=== PATIENT | female | born 1995 | race Caucasian/White ===

== ENCOUNTER 2017-10-22 16:03 | Emergency (ER) | payer OTHER ==
[2017-10-22 16:38] LABS: BILIRUBIN,URINE NEGATIVE (NEGATIVE); GLUCOSE, URINE (UA) NEGATIVE (NEGATIVE); KETONES,URINE (UA) NEGATIVE (NEGATIVE); LEUKOCYTE ESTERASE, URINE NEGATIVE (NEGATIVE); NITRITE,URINE NEGATIVE (NEGATIVE); OCCULT BLOOD,URINE NEGATIVE (NEGATIVE); PH,URINE 6.5 PH (5.0-7.5); PROTEIN,URINE NEGATIVE (NEGATIVE); UROBILINOGEN,URINE 0.2 (NORMAL) E.U./dL (NORMAL)
[2017-10-22 16:39] LABS: CLARITY,URINE CLEAR (CLEAR)
[2017-10-22 16:41] LABS: HCG UR QUAL NEGATIVE
--- NOTE | 2017-10-22 17:13 | ED Physician Documentation ---
PD HPI ABD PAIN - Stated complaint Stated Complaint: [place] PX - Chief complaint Chief Complaint: Abd Pain - History obtained from History obtained from: Patient - History of Present Illness Timing - onset: How many months ago (several months ago) Timing - duration: Months Timing - details: Abrupt onset, Intermittant Pain level max: 5 Pain level now: 1 Quality: Sharp (lasts 1-2 seconds at a time) Location: Suprapubic (states that it feels like a sharp string attached to her belly button.) Radiation: Other (non-radiating) Improved by: Other (nothing) Worsened by: Other (urination) Associated symptoms: Dysuria. No: Fever, Nausea, Vomiting, Hematemesis, Diarrhea, Constipation, Melena, Hematochezia, Hematuria, Chest pain, Dizzy, Vaginal dc Similar symptoms before: No diagnosis Recently seen: Clinic (had a pelvic exam last month. normal per pt.) - Additional information Additional information: No vaginal discharge Review of Systems Constitutional: denies: Fever, Chills Throat: denies: Sore throat Cardiac: denies: Chest pain / pressure Respiratory: denies: Cough GI: denies: Nausea, Vomiting, Diarrhea : denies: Dysuria, Frequency, Hesitancy, Discharge, Vaginal bleeding, Irregular menses, Missed period, Now EGA Skin: denies: Rash Neurologic: denies: Headache PD PAST MEDICAL HISTORY - Past Medical History Past Medical History: No - Past Surgical History Past Surgical History: No - Present Medications Home Medications: Ambulatory Orders Medication Instructions Recorded Confirmed No Known Home Medications [No 10/22/17 10/22/17 Known Home Medications] - Allergies Allergies/Adverse Reactions: Allergies Allergy/AdvReac Type Severity Reaction Status Date / Time No Known Drug Allergies Allergy Verified 11/11/15 06:58 - Living Situation Living Situation: reports: With family Living Arrangement: reports: At home - Social History Does the pt smoke?: No Smoking Status: Never smoker Does the pt drink ETOH?: No Does the pt have substance abuse?: No - Immunizations Immunizations are current?: Yes PD ED PE NORMAL - Vitals Vital signs reviewed: Yes - General General: Alert and oriented X 3, No acute distress - HEENT HEENT: Moist mucous membranes - Neck Neck: Supple, no meningeal sign - Cardiac Cardiac: RRR, Strong equal pulses - Respiratory Respiratory: No respiratory distress, Clear bilaterally - Abdomen Abdomen: Soft, Non tender, Non distended - Back Back: No CVA TTP, No spinal TTP - Derm Derm: Warm and dry, No rash - Extremities Extremities: No edema - Neuro Neuro: Alert and oriented X 3 - Psych Psych: Normal mood, Normal affect Results - Vitals Vitals: Vital Signs - 24 hr 10/22/17 10/22/17 16:20 19:34 Temperature 36.8 C 37.3 C Heart Rate 76 71 Respiratory 18 14 Rate Blood Pressure 114/70 116/73 O2 Saturation 100 100 Oxygen O2 Source Room air - Labs Labs: Laboratory Tests 10/22/17 10/22/17 10/22/17 16:25 16:25 17:57 WBC 9.7 RBC 4.86 Hgb 15.0 Hct 43.1 MCV 88.7 MCH 30.9 MCHC 34.9 RDW 12.2 Plt Count 182 MPV 9.4 Neut # 6.1 Lymph # 2.9 Archer # 0.5 Eos # 0.1 Baso # 0.0 Absolute Nucleated RBC 0.01 Nucleated RBC % 0.1 Sodium Potassium Chloride Carbon Dioxide Anion Gap BUN Creatinine Estimated GFR (MDRD) Glucose Calcium Total Bilirubin AST ALT Alkaline Phosphatase Total Protein Albumin Globulin Albumin/Globulin Ratio Lipase Urine Color YELLOW Urine Clarity CLEAR Urine pH 6.5 Ur Specific [place] 1.010 1.010 Urine Protein NEGATIVE Urine Glucose (UA) NEGATIVE Urine Ketones NEGATIVE Urine Occult Blood NEGATIVE Urine Nitrite NEGATIVE Urine Bilirubin NEGATIVE Urine Urobilinogen 0.2 (NORMAL) Ur Leukocyte Esterase NEGATIVE Ur Microscopic Review NOT INDICATED Urine Culture Comments NOT INDICATED Urine HCG, Qual NEGATIVE 10/22/17 17:57 WBC RBC Hgb Hct MCV MCH MCHC RDW Plt Count MPV Neut # Lymph # Archer # Eos # Baso # Absolute Nucleated RBC Nucleated RBC % Sodium 139 Potassium 3.6 Chloride 104 Carbon Dioxide 26 Anion Gap 9.0 BUN 14 Creatinine 1.2 H Estimated GFR (MDRD) 56 L Glucose 92 Calcium 9.6 Total Bilirubin 0.5 AST 17 ALT 15 Alkaline Phosphatase 54 Total Protein 7.4 Albumin 4.5 Globulin 2.9 Albumin/Globulin Ratio 1.6 Lipase 17 L Urine Color Urine Clarity Urine pH Ur Specific [place] Urine Protein Urine Glucose (UA) Urine Ketones Urine Occult Blood Urine Nitrite Urine Bilirubin Urine Urobilinogen Ur Leukocyte Esterase Ur Microscopic Review Urine Culture Comments Urine HCG, Qual - Rads (name of study) pelvic US Radiology: Prelim report reviewed, EMP read contemporaneously, See rad report ( No uterine fibroids. Normal endometrium. Small amount of fluid in the cervix. No cervical mass. No concerning adnexal lesions, mildly complex 2.3 cm right ovarian cyst with internal debris. Likely physiologic in a patient of this age. No torsion) PD MEDICAL DECISION MAKING - ED course Complexity details: reviewed results, re-evaluated patient, considered differential, d/w patient ED course: Patient is a 22-year-old female with ongoing intermittent sharp abdominal/ pelvic pain of unclear etiology. No acute findings on testing in the emergency department. We will have her follow-up with her doctor for further evaluation and care. She declines a pelvic examination at this time as she had one last month. No vaginal bleeding or discharge. Patient counseled regarding signs and symptoms for which I believe and urgent re-evaluation would be necessary. Patient with good understanding of and agreement to plan and is comfortable going home at this time This document was made in part using voice recognition software. While efforts are made to proofread this document, sound alike and grammatical errors may occur. Departure - Departure Disposition: 01 Home, Self Care Clinical Impression: Abdominal pain Qualifiers: Abdominal location: unspecified location Qualified Code(s): R10.9 - Unspecified abdominal pain Ovarian cyst Qualifiers: Laterality: right Qualified Code(s): N83.201 - Unspecified ovarian cyst, right side Condition: Good Instructions: ED Abdominal Pain Unkn Cause, ED Cyst Ovarian Follow-Up: your,doctor in 1 week [Other] Comments: The cause of your symptoms is unclear today. Return if you worsen. You do have an ovarian cyst on US tonight. Discharge Date/Time: 10/22/17 20:16
[2017-10-22 18:37] LABS: BASOPHILS % (AUTO) 0.1 %; EOSINOPHILS # (AUTO) 0.1 10^3/uL (0.0-0.7); EOSINOPHILS % (AUTO) 0.5 %; LYMPHOCYTES # (AUTO) 2.9 10^3/uL (1.5-3.5); LYMPHOCYTES % (AUTO) 30.2 %; MEAN CORPUSCULAR HEMOGLOBIN 30.9 pg (27.0-31.0); MEAN CORPUSCULAR HGB CONC 34.9 g/dL (32.0-36.0); MEAN CORPUSCULAR VOLUME 88.7 fL (81.0-99.0); MEAN PLATELET VOLUME 9.4 fL (7.9-10.8); MONOCYTES # (AUTO) 0.5 10^3/uL (0.0-1.0); MONOCYTES % (AUTO) 5.7 %; NEUTROPHILS # (AUTO) 6.1 10^3/uL (1.5-6.6); NEUTROPHILS % (AUTO) 63.5 %; PLT - PLATELET COUNT 182 10^3/uL (130-450); RED BLOOD COUNT 4.86 10^6/uL (4.20-5.40); RED CELL DISTRIBUTION WIDTH 12.2 % (12.0-15.0); WHITE BLOOD COUNT 9.7 x10^3/uL (4.8-10.8)
[2017-10-22 18:41] LABS: ALBUMIN 4.5 g/dL (3.2-5.5); ALBUMIN/GLOBULIN RATIO 1.6 (1.0-2.2); BILIRUBIN,TOTAL 0.5 mg/dL (0.2-1.0); CALCIUM 9.6 mg/dL (8.5-10.3); CREATININE 1.2 mg/dL (0.4-1.0); TOTAL PROTEIN 7.4 g/dL (6.7-8.2)
--- NOTE | 2017-10-22 19:21 | Ultrasound Preliminary Report ---
Exam: US PELVIC NON OB W/DOPPLER IMPRESSION: 1. No uterine fibroids. 2. Normal endometrium. Small amount of fluid in the cervix. No cervix mass. 3. No concerning adnexal lesions. Mildly complex 2.3 cm right ovarian cyst with internal debris. This is likely physiologic in a patient of this age. No concerning adnexal lesion or torsion. [facility] SITE ID: [id number]
--- NOTE | 2017-10-22 19:27 | Ultrasound Report ---
EXAM: PELVIC ULTRASOUND EXAM DATE: 10/22/2017 06:54 PM. CLINICAL HISTORY: Mid pelvic pain. COMPARISON: None. TECHNIQUE: Realtime transabdominal pelvic scan performed to identify the uterus and adnexa and as an overview of other pelvic structures, followed by transvaginal scan to provide greater detail of the u terus and adnexa, with static image documentation. FINDINGS: Uterus: 9.2 x 2.6 x 4.0 cm. Anteverted position. Normal overall size and echotexture. Masses: None. Endometrium: 2.7 mm. Normal. Cervix: No mass. Small amount of fluid is noted in the cervical canal. Right Ovary: 2.4 x 1.4 x 1.8 cm, volume 3.1 cc. Normal echotexture and blood flow. Left Ovary: 3.0 x 2.1 x 2.7 cm, volume 8.8 cc. Normal echotexture and blood flow. Mildly complex 2.3 x 1.3 x 1.6 cm cyst with small amount of debris. No thickened septations or mural nodules. Free Fluid: None. Other: None. IMPRESSION: 1. No uterine fibroids. 2. Normal endometrium. Small amount of fluid in the cervix. No cervix mass. 3. No concerning adnexal lesions. Mildly complex 2.3 cm right ovarian cyst with internal debris. This is likely physiologic in a patient of this age. No concerning adnexal lesion or torsion. [facility] Referring Provider Line: [phone] SITE ID: [id number]
[2017-10-22 19:35] VITALS: BP 116/73
== END 2017-10-22 20:16 | disposition home or self-care (01) ==
LOC: ED 16:03
DX: R10.9 Unspecified abdominal pain (principal); N83.201 Unspecified ovarian cyst, right side
CPT/HCPCS: 36415; 76830; 76856; 80053; 81001; 81003; 81025; 83690; 85025; 87086; 93975; 99283; 99284

== ENCOUNTER 2018-08-22 07:12 | Day surgery (SDC) | payer OTHER ==
--- NOTE | 2018-08-22 07:05 | ANESTHESIA ---
Pre-Anesthesia VS, & Labs - Diagnosis Umbilical hernia - Procedure Umbilical hernia repair Height 5 ft 8 in Body Mass Index 22.0 - NPO >8 hours - Is Patient ?: No Home Medications and Allergies No Known Home Medications 10/22/17 Allergies/Adverse Reactions: Allergies Allergy/AdvReac Type Severity Reaction Status Date / Time No Known Drug Allergies Allergy Verified 11/11/15 06:58 Anes History & Medical History - Anesthetic History Anesthesia Complications: reports: No previous complications Family history of Anesthesia Complications: Denies Family history of Malignant Hyperthermia: Denies - Medical History Cardiovascular: reports: None Pulmonary: reports: None Gastrointestinal: reports: None Urinary: reports: None Neuro: reports: None Musculoskeletal: reports: None Endocrine/Autoimmune: reports: None Blood Disorders: reports: None Skin: reports: None Smoking Status: Never smoker Psychosocial: reports: No issues indicated - Surgical History Eyes Ears Nose Throat (EENT): Tonsil/Adenoidectomy Exam General: Alert Dental: WNL Mouth Openin Fingerbreadth Neck Mobility: Normal Mallampati classification: II Thyromental Distance: greater than 6 cm Respiratory: Lungs clear Cardiovascular: Regular rate Mental/Cognitive Status: Alert/Oriented X3 Cognitive Status: Within normal limits Plan Anesthesia Type: General Consent for Procedure(s) Verified and Reviewed: Yes Code Status: Attempt Resuscitation ASA classification: 1-Healthy patient Is this case an emergency?: No
[~2018-08-22 07:12] MED LIST: BUPIVACAINE 0.5% PF 30 ML VIAL ONE; LIDOCAINE 1%-EPI 1:100000 30 ML MDV ONE
[2018-08-22] MEDS ORDERED: ceFAZolin 2 GM/50 ML 2 GM/50 ML BAG IV ONE (07:15)
[2018-08-22] MEDS ORDERED: LACTATED RINGERS 1,000 ML IV ONE ×2 (07:16→08:40)
[2018-08-22 07:43] LABS: HCG UR QUAL NEGATIVE
[2018-08-22] MEDS ORDERED: BUPIVACAINE 0.5% PF 30 ML VIAL SUBQ ONE ×3 (08:16→08:40)
[2018-08-22] MEDS ORDERED: LIDOCAINE 1%-EPI 1:100000 30 ML MDV SUBQ ONE ×3 (08:16→08:40)
[2018-08-22] MEDS ORDERED: ACETAMINOPHEN 325 MG TABLET PO PRN (09:09)
[2018-08-22] MEDS ORDERED: oxyCODONE 5 MG TABLET PO PRN (09:09)
[2018-08-22] MEDS ORDERED: IBUPROFEN 600 MG TABLET PO PRN (09:09)
[2018-08-22] MEDS ORDERED: ONDANSETRON 4 MG/2 ML VIAL IVP PRN (09:09)
[2018-08-22] MEDS ORDERED: MIDAZOLAM 2 MG/2 ML VIAL IVP ONE (09:11)
[2018-08-22] MEDS ORDERED: PROPOFOL 200 MG/20 ML VIAL IVP ONE (09:11)
[2018-08-22] MEDS ORDERED: fentaNYL 100 MCG/2 ML VIAL IVP ONE (09:11)
[2018-08-22] MEDS ORDERED: KETOROLAC 30 MG/ML VIAL IVP ONE (09:11)
[2018-08-22] MEDS ORDERED: ONDANSETRON 4 MG/2 ML VIAL IVP ONE (09:11)
[2018-08-22] MEDS ORDERED: DEXAMETHASONE 4 MG/ML VIAL IVP ONE (09:11)
[2018-08-22] MEDS ORDERED: HYDROmorphone 0.5 MG/0.5 ML SYRINGE ONE (09:22)
--- NOTE | 2018-08-22 09:30 | OPERATIVE REPORT ---
DATE OF SERVICE: 08/22/2018 Physician: Alli Strong MD PREOPERATIVE DIAGNOSIS: Symptomatic umbilical hernia. POSTOPERATIVE DIAGNOSIS: Symptomatic umbilical hernia. PROCEDURE PERFORMED: Open repair of symptomatic umbilical hernia. ANESTHESIA: General laryngeal mask anesthesia by Ila Guerra CRNA. SURGEON: Alli Strong MD. ESTIMATED BLOOD LOSS: 5 mL. DRAINS: None. COMPLICATIONS: None. FINDINGS: A less than 10 mm umbilical hernia was present with preperitoneal fat present, comprising the contents of the hernia sac. INDICATIONS FOR PROCEDURE: This patient is a 22-year-old woman with a several- year history of progressively worsening umbilical pain and sensation of movement. Examination revealed a small umbilical hernia, less than 10 mm in diameter, which was confirmed with ultrasound examination. She is felt to be suffering from symptomatic umbilical hernia. Advised to undergo repair. PROCEDURE: After informed consent, the patient was taken to the operating room where she was placed under general laryngeal mask anesthesia. Her abdomen was prepped with ChloraPrep solution and draped in the usual sterile fashion. Preoperative preparation included application of sequential calf compression boots, and administration of 2 grams cefazolin intravenously within an hour of the incision. A transverse curvilinear incision was made along the inferior edge of the umbilicus and carried down through the subcutaneous tissues, until the umbilical hernia sac was identified. It was dissected free from surrounding soft tissues at the level of the midline fascia. The umbilical dermis was dissected off the hernia sac, which was then entered, contents reduced. The excess hernia sac was excised and discarded. The fascial edges were mobilized and reapproximated transversely with two interrupted 0 Ethibond sutures. After hemostasis was ensured with electrocautery, approximately 20 mL of 0.5% Marcaine with epinephrine was infiltrated into the incision to assist in postoperative analgesia, following which wound closure was accomplished in layers using interrupted 2-0 Vicryl to reapproximate the umbilical dermis to the anterior fascia, and also reapproximate the deep subcutaneous tissues, followed by continuous 3-0 Vicryl to reapproximate the superficial subcutaneous tissue, followed by 4-0 Monocryl subcuticular skin closure, followed by Dermabond. Anesthesia was terminated, and the patient was transferred to the recovery room in satisfactory condition. Sponge and needle counts were correct x2. No drains were used. TD: 08/22/2018 09:22 MTDRobby
[2018-08-22 10:40] VITALS: BP 104/68
== END 2018-08-22 07:13 | disposition home or self-care (01) ==
LOC: SDS 07:12
PROVIDERS: ATTEND Internal Medicine Gastroenterology
PROC: 0WQF0ZZ Repair Abdominal Wall, Open Approach (ICD-10-PCS; principal; 2018-08-22 08:30)
DX: K42.9 Umbilical hernia without obstruction or gangrene (principal)
CPT/HCPCS: 49585; 81025; A9270; J0690; J1170; J7120

== ENCOUNTER 2019-05-08 14:10 | Emergency (ER) | payer OTHER ==
--- NOTE | 2019-05-08 14:59 | ED Physician Documentation ---
PD HPI SKIN - Stated complaint Stated Complaint: BUMP ON GROIN - Chief complaint Chief Complaint: Wound - History obtained from History obtained from: Patient - History of Present Illness Timing - onset: Yesterday Timing - details: Abrupt onset Location: Genitals Quality / character: Painful Associated symptoms: No: Fever Similar symptoms before: Treatment Recently seen: Not recently seen - Additional information Additional information: Is a 23-year-old who had a "boil" in her right groin about 2 years ago and had it lanced. Since that time and will intermittently fill up with a thick white material that she squeezes out of it she was messing with it yesterday and it "flared up" now is really tender but is not draining anything specifically. She has not had a fever. Denies history of MRSA. Denies and she is not diabetic. She is in the [place]. Review of Systems Constitutional: denies: Fever Skin: reports: Other (Firm tender nodule in the right groin) Endocrine: reports: Other (No diabetes) PD PAST MEDICAL HISTORY - Past Medical History Past Medical History: No Cardiovascular: None Respiratory: None Neuro: None Endocrine/Autoimmune: None GI: None SENIOR TEST ANALYST: None : None HEENT: None Psych: None Musculoskeletal: None Derm: None - Past Surgical History Past Surgical History: No HEENT: Tonsil/Adenoidectomy - Present Medications Home Medications: Ambulatory Orders Medication Instructions Recorded Confirmed Sulfamethox/Trimeth 800/160 1 each PO BID #14 tablet 05/08/19 [Bactrim Ds 800/160] - Allergies Allergies/Adverse Reactions: Allergies Allergy/AdvReac Type Severity Reaction Status Date / Time etonogestrel [From Nexplanon] Allergy Unknown Verified 05/08/19 14:17 - Social History Does the pt smoke?: No Smoking Status: Never smoker Does the pt drink ETOH?: Yes Does the pt have substance abuse?: No - Immunizations Immunizations are current?: Yes - POLST Patient has POLST: No PD ED PE NORMAL - Vitals Vital signs reviewed: Yes - General General: Alert and oriented X 3, No acute distress, Well developed/nourished - HEENT HEENT: Atraumatic, PERRL - Derm Derm: Other (The patient has a sebaceous cyst on the right labia at the intersection of the groin. There is a little bit of erythema of this but it is very firm not fluctuant no spreading redness or edema.) Results - Vitals Vitals: Vital Signs - 24 hr 05/08/19 14:14 Temperature 36.9 C Heart Rate 58 L Respiratory 16 Rate Blood Pressure 126/77 O2 Saturation 100 Oxygen O2 Source Room air PD MEDICAL DECISION MAKING - ED course Complexity details: d/w patient ED course: I discussed with the patient that at this point cannot [place] the material out of this cyst. Does not appear to be an abscess. I recommended that she stop trying to squeeze material out of it, start an anti-inflammatory like ibuprofen [id number]. Of given her a back-up prescription for some Bactrim if this appears like it is getting infected. She is counseled to follow-up if she starts the Bactrim and the swelling or spreading redness is getting worse. She was counseled that she would need to see a surgeon to have the cyst completely removed if it is bothersome for her. She is disappointed that it cannot be drained today but understands. Departure - Departure Disposition: 01 Home, Self Care Clinical Impression: Sebaceous cyst of labia Condition: Good Instructions: ED Cyst Sebaceous Follow-Up: [facility] [Provider Group] Prescriptions: Sulfamethox/Trimeth 800/160 [Bactrim Ds 800/160] 1 each PO BID #14 tablet Comments: Stop trying to squeeze material out of the cyst. Take ibuprofen 3 to 4 tablets every 8 hours with food to help with the inflammation process. You have a prescription for Bactrim antibiotic that if the redness is spreading or the cyst is growing and becoming more painful you can start the antibiotic. If you do start the antibiotic and the cyst continues to grow he should be reevaluated to have it lanced. If you want the cyst removed that would need a referral to a surgeon from the [facility].
[2019-05-08 15:23] VITALS: BP 105/72
== END 2019-05-08 15:25 | disposition home or self-care (01) ==
LOC: ED 14:10
DX: N94.89 Other specified conditions associated with female genital organs and menstrual cycle (principal)
CPT/HCPCS: 99282; 99283